=== PATIENT | male | born 1960 | race Caucasian/White ===

== ENCOUNTER → 2021-09-17 | Outpatient (CLI) | payer BC | LOC: MHCPAIN 14:33 | DX: M47.812 Spondylosis without myelopathy or radiculopathy, cervical region (principal); M54.2 Cervicalgia; M54.12 Radiculopathy, cervical region | CPT/HCPCS: G0463 ==

== ENCOUNTER → 2021-10-29 | Outpatient (CLI) | payer BC | LOC: MHCPAIN 14:15 | DX: M47.892 Other spondylosis, cervical region (principal); M54.12 Radiculopathy, cervical region | CPT/HCPCS: G0463 ==

== ENCOUNTER → 2021-12-16 | Outpatient (CLI) | payer BC | LOC: MHCPAIN 14:04 | DX: M47.812 Spondylosis without myelopathy or radiculopathy, cervical region (principal); M54.12 Radiculopathy, cervical region | CPT/HCPCS: G0463; J1100; Q9967 ==

== ENCOUNTER → 2022-01-28 | Outpatient (CLI) | payer BC | LOC: MHCPAIN 12:34 | DX: M47.892 Other spondylosis, cervical region (principal); M54.2 Cervicalgia; M25.511 Pain in right shoulder | CPT/HCPCS: G0463 ==

== ENCOUNTER → 2023-01-15 | Outpatient (CLI) | payer BC | LOC: MHCPAIN 08:00 | DX: M47.812 Spondylosis without myelopathy or radiculopathy, cervical region (principal); M48.02 Spinal stenosis, cervical region; M54.12 Radiculopathy, cervical region | CPT/HCPCS: J1100; Q9967 ==